=== PATIENT | male | born 1970 | race Caucasian/White ===

== ENCOUNTER 2022-05-28 11:09 | Emergency (ER) | payer SELFPAY ==
--- NOTE | ~2022-05-28 | XR_ITS ---
XR shoulder LT min 2V 05/28/2022 12:27 Indication: Left shoulder pain Procedure: 4 views left shoulder Comparison: No prior studies for comparison. Findings: There is mild osteoarthritis of the glenohumeral joint. No fracture, subluxation or disloca tion. There are mild degenerative changes of the acromioclavicular joint. Lungs are unremarkable. No soft tissue abnormality. No foreign bodies. Impression: 1: Mild polyarticular osteoarthritis of the left shoulder. Reviewed, dictated and finalized at location A. NG INSTRUCTOR Impression: 1: Mild polyarticular osteoarthritis of the left shoulder.
--- NOTE | 2022-05-28 12:08 | ED.UPPEXIN ---
HPI - Extremity Injury (Upper) General Chief Complaint: Extremity Injury, Upper Stated Complaint: Shoulder Pain Time Seen by Provider: 05/28/22 12:09 Source: patient Mode of arrival: ambulatory Limitations: no limitations History of Present Illness HPI narrative: 52-year-old male presented for complaints of left shoulder pain worsening over the last 3 months. He denies recent injury. He states the pain is aching and persistent. Endorses the cap feels numb but he has full range of motion at the shoulder. He endorses pain is worse with lifting certain objects or laying on it/applying pressure. He denies numbness, tingling, weakness of the extremity. He has not taken anything for pain. He did not have a PCP. He states he is applying for disability. Related Data Allergies Allergy/AdvReac Type Severity Reaction Status Date / Time No Known Allergies Allergy Verified 05/28/22 12:06 Review of Systems Review of Systems: CONSTITUTIONAL: Denies body aches, fever, chills EYES: Denies visual changes ENT: Denies rhinorrhea, congestion CARDIOVASCULAR: Denies chest pain, palpitations, or edema. RESPIRATORY: Denies cough or dyspnea. SKIN: Denies rash, itching, or wounds. MUSCULOSKELETAL: per HPI NEUROLOGIC: Denies headache, numbness, tingling, or weakness. All systems reviewed & are unremarkable except as noted in HPI and below PMFSH Comments At time of signature, I have reviewed and agree with nursing past medical, surgical, social and family history unless otherwise noted. Please see nursing chart for further information. There is no relevant family history pertinent to the presenting complaint Exam Narrative: GENERAL: Well-appearing, well-nourished, and in no acute distress. HEAD: Normocephalic, atraumatic. EYES: PERRLA, conjunctivae clear NECK: Supple. CHEST: Speaks in full sentences. No respiratory distress. HEART: Regular rate and rhythm. Normal and equal peripheral pulses. EXTREMITIES: has normal strength and sensation, normal range of motion with flexion/extension/rotation, but endorses pain with movement. No/yes edema or ecchymosis, No/yes point tenderness. No open wounds, skin tenting, or obvious deformity; alignment normal, pulse palpable and equal bilaterally, skin warm, dry, pink. Capillary refill less than 3 seconds. SKIN: Warm, dry, no rash. NEURO: Alert and oriented x3. PSYCH: Normal mood and affect Course Course Emergency Course: Patient is aware of diagnosis, understands and agrees to treatment plan. Anticipatory guidance given. Patient agrees to follow-up as directed and is aware of reasons to seek care at the emergency department. Portions of this record may have been created with voice recognition software Level of Care: Express Care Visit Vital Signs Vital signs: Vital Signs Temperature 97.9 F 05/28/22 12:17 Pulse Rate 82 05/28/22 12:17 Respiratory Rate 16 05/28/22 12:17 Blood Pressure 120/77 05/28/22 12:17 Pulse Oximetry 98 05/28/22 12:17 Oxygen Delivery Room Air 05/28/22 12:17 Temperature 97.9 F 05/28/22 12:17 Pulse Rate 82 05/28/22 12:17 Respiratory Rate 16 05/28/22 12:17 Blood Pressure 120/77 05/28/22 12:17 Pulse Oximetry 98 05/28/22 12:17 Oxygen Delivery Room Air 05/28/22 12:17 Reviewed MDM - Extremity Injury (Upper) MDM Narrative Medical decision making narrative: Results of x-ray reviewed with patient. Advised supportive measures and signs/symptoms to go to the ER. Pt is appropriate for outpt treatment and f/u. Patient's injury and pain appear to be of musculoskeletal nature. No concern for tendon or nerve injury. Patient is treatable on an outpatient basis. Differential Diagnosis Differential diagnosis: Likely other (arthritis, bursitis, tendonitis, muscle strain) Imaging Data Radiologist's impression: Patient: Wayne Chase : 1970 MR#: [id number] Age/Sex: 52 / M Acct:[id number] Loc: [facility]? ?
[2022-05-28 12:17] VITALS: BP 120/77; PULSE 82; RESP 16; TEMP 36.6; O2SAT 98
== END 2022-05-28 12:45 | disposition home or self-care (01) ==
PROVIDERS: Emergency Provider Nurse Practitioner Family
DX: M25.512 Pain in left shoulder (principal)
CPT/HCPCS: 73030; 99213; G0463

== ENCOUNTER 2022-07-31 15:56 | Emergency (ER) | payer OTHER, SELFPAY ==
[2022-07-31 16:13] VITALS: BP 118/78; PULSE 80; RESP 16; TEMP 36.2; O2SAT 99
--- NOTE | 2022-07-31 16:24 | ED.DENTAL ---
HPI - Dental/Oral General Chief complaint: Dental/Oral Stated complaint: Toothache/Jaw pain Source: patient and RN notes reviewed History of Present Illness HPI Narrative: 52-year-old male presents to urgent care with complaints of bilateral lymph node tenderness as well as a toothache. Patient states this all started yesterday and the toothache is intermittent. Patient denies any fevers, chills, ear pain, cough, chest pain, shortness of breath, vomiting, or diarrhea. Patient does report some rhinorrhea. Some parts of this dictation were generated by voice recognition software and may contain typographical and/or grammatical inaccuracies. Related Data Allergies Allergy/AdvReac Type Severity Reaction Status Date / Time No Known Allergies Allergy Verified 07/31/22 16:03 Review of Systems Review of Systems: CONSTITUTIONAL: Denies fever, chills, or sweats. EYES: Denies visual changes, redness, or discharge. ENT: Reports bilateral lymph node tenderness and right lower dental pain CARDIOVASCULAR: Denies chest pain, palpitations, or edema. RESPIRATORY: Denies cough or dyspnea. GASTROINTESTINAL: Denies abdominal pain, nausea, vomiting, or diarrhea. GENITOURINARY: Denies dysuria or hematuria. SKIN: Denies rash or itching. MUSCULOSKELETAL: Denies back pain, joint pain, or myalgia. PMFSH Comments At the time of my signature, I reviewed and agree with the nursing past medical, surgical, social, and family history. There is no relevant family history pertinent to the patient complaint. Exam Narrative: GENERAL: This is a well-nourished, well-developed patient, in no apparent distress. HEAD: normocephalic, atraumatic. EYES: PERRL. Sclera clear/white. Vision is grossly intact. EARS: External ears normal, auditory canals clear and without drainage, TMs normal without perforation. Hearing grossly intact. NOSE: External nose normal with no obvious nasal discharge, nares without redness, no rhinorrhea. THROAT: Mucous membranes moist, posterior pharynx clear. NECK: Neck supple, non-tender without lymphadenopathy, masses or thyromegaly. CARDIOVASCULAR: Regular rate and rhythm without murmurs, gallops, or rubs. RESPIRATORY: Clear to auscultation. Breath sounds equal bilaterally. No wheezes, rales, or rhonchi. GASTROINTESTINAL: Abdomen soft, non-tender, nondistended. Bowel sounds are active. No hepato-splenomegaly, or palpable masses. No guarding. SKIN: warm, intact with no suspicious lesions or rash, good texture and turgor. NEURO: awake, alert, and oriented to person, place and time. There were no obvious focal neurologic abnormalities. MOUTH: no exudate or tenderness noted on dental exam. No swelling noted at this time. Course Course Level of Care: Express Care Visit Vital Signs Vital signs: Vital Signs Temperature 97.2 F L 07/31/22 16:13 Pulse Rate 80 07/31/22 16:13 Respiratory Rate 16 07/31/22 16:13 Blood Pressure 118/78 07/31/22 16:13 Pulse Oximetry 99 07/31/22 16:13 Oxygen Delivery Room Air 07/31/22 16:13 Temperature 97.2 F L 07/31/22 16:13 Pulse Rate 80 07/31/22 16:13 Respiratory Rate 16 07/31/22 16:13 Blood Pressure 118/78 07/31/22 16:13 Pulse Oximetry 99 07/31/22 16:13 Oxygen Delivery Room Air 07/31/22 16:13 Reviewed. MDM - Dental/Oral MDM Narrative Medical decision making narrative: May take 800 mg of ibuprofen every 8 hours if needed for pain and/or fever, with food. May also take 650 mg Tylenol every 6 hours if needed for pain and/or fever. Please follow up with a dentist. Get plenty of fluids. GO to the ER with any new or worsening symptoms. Differential Diagnosis Differential diagnosis: Likely gingival abscess, dental caries, toothache and dental abscess Critical Care Time Critical Care Time Critical Care Time: No Discharge Plan Discharge Clinical Impression: Toothache Patient Disposition: Home, Self-Care Condition: Stable Instructions: Antibiotic
== END 2022-07-31 16:32 | disposition home or self-care (01) ==
PROVIDERS: Emergency Provider Nurse Practitioner Family; PCP Emergency Medicine
DX: K08.89 Other specified disorders of teeth and supporting structures (principal)
CPT/HCPCS: 99213; G0463